=== PATIENT | female | born 1945 ===

== ENCOUNTER 2016-12-02 05:54 | Emergency (ER) | payer MEDICARE, MEDICAID ==
[2016-12-02 06:17] VITALS: RESP 16
--- NOTE | 2016-12-02 06:31 | C.PDOC ---
History Of Present Illness Patient is a 71 year old female who presents to the ER with a complaint of cramping pain from her left foot radiating to her left lower leg. Patients states while she was walking to the bathroom it radiated to her left abdomen and left back. Denies falling, urinary symptoms, vomiting, diarrhea or fever. Time Seen by Provider: 12/02/16 06:07 Chief Complaint (Nursing): Lower Extremity Problem/Injury History Per: Patient History/Exam Limitations: no limitations Onset/Duration Of Symptoms: Hrs Current Symptoms Are (Timing): Still Present Past Medical History Reviewed: Historical Data, Nursing Documentation, Vital Signs Vital Signs: Last Vital Signs Temp 97.6 F 12/02/16 06:06 Pulse 75 12/02/16 06:06 Resp 16 12/02/16 06:06 BP 116/76 12/02/16 06:06 Pulse Ox 99 12/02/16 06:36 - Medical History PMH: Anxiety, Arthritis, Asthma, HTN, Osteoporosis Surgical History: Cholecystectomy Family History: States: Unknown Family Hx - Social History Hx Alcohol Use: No Hx Substance Use: No - Immunization History Hx Influenza Vaccination: No Hx Pneumococcal Vaccination: No Review Of Systems Except As Marked, All Systems Reviewed And Found Negative. Constitutional: Negative for: Fever, Chills Gastrointestinal: Negative for: Vomiting Genitourinary: Negative for: Dysuria, Hematuria Musculoskeletal: Positive for: Back Pain, Leg Pain, Foot Pain, Other (Abdominal pain) Physical Exam - Physical Exam Appears: Non-toxic Skin: Normal Color, Warm, Dry Head: Atraumatic, Normacephalic Oral Mucosa: Moist Chest: Symmetrical Cardiovascular: Rhythm Regular Respiratory: Normal Breath Sounds, No Rales, No Rhonchi, No Wheezing Gastrointestinal/Abdominal: Soft, Tenderness (Left lower quadrant ) Back: CVA Tenderness (Left) Extremity: Normal ROM, No Calf Tenderness Pulses: Left Femoral: Normal, Right Femoral: Normal, Left Dorsalis Pedis: Normal , Right Dorsalis Pedis: Normal Neurological/Psych: Oriented x3, Normal Speech, Normal Cognition ED Course And Treatment - Laboratory Results Result Diagrams: 12/02/16 06:54 O2 Sat by Pulse Oximetry: 99 (Room air) Pulse Ox Interpretation: Normal Progress Note: Blood work and urinalysis ordered. Toradol IVP administered. Disposition - Disposition Disposition Time: 07:06 Condition: STABLE - Clinical Impression Clinical Impression: Abdominal pain, Pain of lower extremity - Scribe Statement The provider has reviewed the documentation as recorded by the Scribe Ac Brown All medical record entries made by the Scribe were at my direction and personally dictated by me. I have reviewed the chart and agree that the record accurately reflects my personal performance of the history, physical exam, medical decision making, and the department course for this patient. I have also personally directed, reviewed, and agree with the discharge instructions and disposition.
[2016-12-02 06:57] LABS: BASO # 0.1 K/uL (0.0-0.2); BASO % 0.8 % (0.0-2.0); EOS # 0.1 K/uL (0.0-0.7); EOS % 0.8 % (0.0-4.0); HEMATOCRIT 45.8 % (34.0-47.0); LYMPH # 1.8 K/uL (1.0-4.3); LYMPH % 17.6 % (20.0-40.0); MEAN CELL VOLUME 84.8 fL (81.0-99.0); MEAN CORPUSCULAR HEMOGLOBIN 27.6 pg (27.0-31.0); MEAN CORPUSCULAR HGB CONC 32.5 g/dL (33.0-37.0); MEAN PLATELET VOLUME 9.1 fL (7.2-11.7); MONO # 0.8 K/uL (0.0-0.8); MONO % 7.5 % (0.0-10.0); NRBC % 0.2 % (0.0-2.0); RED CELL DISTRIBUTION WIDTH 14.1 % (11.5-14.5); WHITE BLOOD COUNT 10.3 K/uL (4.8-10.8)
[2016-12-02 07:26] LABS: CHLORIDE 88 mmol/L (98-107)
[2016-12-02 07:27] LABS: POTASSIUM 4.6 mmol/L (3.6-5.2); SODIUM 140 mmol/L (132-148)
[2016-12-02 07:29] LABS: ALB/GLOB RATIO 1.5 (1.0-2.1); ALKALINE PHOSPHATASE 81 U/L (38-126); AST/SGOT 16 U/L (14-36); BILIRUBIN,TOTAL 0.4 mg/dL (0.2-1.3); CARBON DIOXIDE 36 mmol/L (22-30); GFR AFRICAN-AMERICAN > 60; TOTAL PROTEIN 7.9 g/dL (6.3-8.3)
[2016-12-02 07:30] LABS: ALT/SGPT 17 U/L (9-52); BLOOD UREA NITROGEN 14 mg/dL (7-17); CALCIUM 9.5 mg/dl (8.6-10.4); GLUCOSE,RANDOM 139 mg/dL (65-105)
[2016-12-02 07:55] LABS: RBC URINE < 1 /hpf (0-3); URINE BILIRUBIN NEGATIVE (NEGATIVE); URINE BLOOD NEGATIVE (NEGATIVE); URINE COLOR Straw (YELLOW); URINE GLUCOSE (UA) NORMAL (Normal); URINE KETONE NEGATIVE (NEGATIVE); URINE LEUKOCYTE ESTERASE NEG Leu/uL (Negative); URINE PROTEIN NEGATIVE (NEGATIVE); URINE UROBILINOGEN NORMAL mg/dL (0.2-1.0); WBC URINE < 1 /hpf (0-5)
[2016-12-02 08:08] LABS: URINE BACTERIA OCC (<OCC)
--- NOTE | 2016-12-02 08:26 | CT ---
PROCEDURE: CT Abdomen and Pelvis without intravenous contrast HISTORY: Pain COMPARISON: None. TECHNIQUE: Helical CT scan of the abdomen and pelvis was performed without administration of oral or intravenous contrast. Coronal and sagittal reformatted images were obtained. Radiation dose: Total exam DLP = 813.04 mGy-cm. This CT exam was performed using one or more of the following dose reduction techniques: Automated exposure control, adjustment of the mA and/or kV according to patient size, and/or use of iterative reconstruction technique. FINDINGS: LOWER THORAX: The right lung base is clear. There is a 7 mm subpleural nodule in the left lower lobe (series 2 image 10). The left lung base is clear. LIVER: The liver is normal in size. No gross lesion or ductal dilatation. GALLBLADDER AND BILE DUCTS: Surgically absent. PANCREAS: The pancreas is normal in size. No ductal dilatation or calcifications. SPLEEN: The spleen is normal in size. ADRENALS: Both adrenal glands are normal in size without discrete nodule KIDNEYS AND URETERS: Both kidneys are normal in size. There is no hydronephrosis or nephrolithiasis. VASCULATURE: Normal in appearance. No aortic aneurysm. BOWEL: The small bowel loops are normal in caliber. There is left colonic diverticulosis and apparent mild mural thickening of the descending and sigmoid colon. No evidence of fluid collection or microperforation. APPENDIX: Normal appendix. PERITONEUM: No free fluid. No free air. LYMPH NODES: No enlarged lymph nodes. BLADDER: Partially decompressed. REPRODUCTIVE: Unremarkable. BONES: No acute fracture. Mild multilevel degenerative disc disease. No destructive bony lesions. OTHER FINDINGS: None. IMPRESSION: Left colonic diverticulosis. Apparent mild mural thickening of the descending and sigmoid colon is nonspecific and could be related to underdistention however early acute diverticulitis cannot be excluded. Clinical follow-up is advised. No evidence of microperforation or abscess. No evidence of nephrolithiasis, obstructive uropathy or acute appendicitis.
[2016-12-02] MEDS ORDERED: Amoxicillin-Clav 875-125 mg Tab PO STA (08:34)
[2016-12-02] MEDS ORDERED: Amoxicillin-Clav 875-125 mg Tab PO ONE (09:04)
[2016-12-02 10:18] VITALS: BP 113/73; PULSE 73; TEMP 97.7; O2SAT 100
--- NOTE | 2016-12-02 14:38 | CARD ---
APPROVED REPORT EKG Measurement Heart [id number] <Conclusion> Poor data quality, interpretation may be adversely affected Normal sinus rhythm Minimal voltage criteria for LVH, may be normal variant Borderline ECG
== END 2016-12-02 10:39 | disposition home or self-care (01) ==
LOC: C.ER 05:54
DX: R10.32 Left lower quadrant pain (principal); M79.662 Pain in left lower leg
CPT/HCPCS: 74176; 80053; 81001; 83690; 85025; 93005; 96374; 96375; 99285; J1885; J2060

== ENCOUNTER 2017-06-15 11:45 | Emergency (ER) | payer OTHER ==
[2017-06-15] MEDS ORDERED: DiphenhydrAMINE 50 mg/ml Inj ONE (11:54)
[2017-06-15 11:57] VITALS: TEMP 98.6
[2017-06-15] MEDS ORDERED: Sodium Chloride 0.9% 1,000 ML IV ONE (11:59)
[2017-06-15] MEDS ORDERED: DiphenhydrAMINE 50 mg/ml Inj IVP STA (11:59)
[2017-06-15] MEDS ORDERED: Sodium Chloride 0.9% 1,000 ML ONE (12:03)
--- NOTE | 2017-06-15 12:29 | C.PDOC ---
History Of Present Illness Patient is a 71 year old female presents to Emergency Department for evaluation of allergic reaction that developed yesterday. Patient states that she developed itchy rash to the face, lower abdomen, and inguinal region. Notes being seen by PMD who gave her prescriptions of unknown medicine, which she states she was not able to fill. Notes taking Benadryl, and using calamine lotion without relief. Denies trouble swallowing, throat swelling, shortness of breath, chest pain, dizziness, or fever. Time Seen by Provider: 06/15/17 12:11 Chief Complaint (Nursing): Allergic Reaction History Per: Patient History/Exam Limitations: no limitations Onset/Duration Of Symptoms: Days (1) Current Symptoms Are (Timing): Still Present Associated Symptoms: Skin Rash, Itching. denies: Swelling, Dyspnea, Trouble Swallowing, Dizziness, Redness, Chest Pain Home/EMS Treatment: Benadryl Recent travel outside of the [place]: No Additional History Per: Patient Past Medical History Reviewed: Historical Data, Nursing Documentation, Vital Signs Vital Signs: Last Vital Signs Temp 98.6 F 06/15/17 13:28 Pulse 71 06/15/17 13:28 Resp 16 06/15/17 13:28 BP 121/77 06/15/17 13:28 Pulse Ox 98 06/15/17 13:28 - Medical History PMH: Anxiety, Arthritis, Asthma, HTN, Osteoporosis Surgical History: Cholecystectomy Family History: States: Unknown Family Hx - Social History Hx Alcohol Use: Yes Hx Substance Use: No - Immunization History Hx Influenza Vaccination: No Hx Pneumococcal Vaccination: No Review Of Systems Except As Marked, All Systems Reviewed And Found Negative. Constitutional: Negative for: Fever, Chills ENT: Negative for: Mouth Pain, Throat Pain, Throat Swelling Cardiovascular: Negative for: Chest Pain Respiratory: Negative for: Shortness of Breath Gastrointestinal: Negative for: Nausea, Vomiting, Abdominal Pain, Diarrhea Skin: Positive for: Rash Neurological: Negative for: Headache, Dizziness Physical Exam - Physical Exam Appears: Non-toxic, No Acute Distress Skin: Warm, Dry, Rash (macular erythematous rash to inguinal folds and suprapubic region with shiny exterior and patchy margins; bright erythema surrounding nasolabial folds, no weeping, no vesicles) Head: Atraumatic, Normacephalic Eye(s): bilateral: Normal Inspection Oral Mucosa: Moist Tongue: Normal Appearing, No Swelling Lips: Normal Appearing, No Swelling Throat: Normal, No Drooling Neck: Normal ROM, Supple Chest: Symmetrical Cardiovascular: Rhythm Regular, No Murmur Respiratory: Normal Breath Sounds, No Rales, No Rhonchi, No Wheezing Gastrointestinal/Abdominal: Soft, No Tenderness Extremity: Normal ROM Neurological/Psych: Oriented x3, Normal Speech ED Course And Treatment O2 Sat by Pulse Oximetry: 99 (RA) Pulse Ox Interpretation: Normal Medical Decision Making Medical Decision Making: Plan: * Miconazole * Solu-Medrol * Pepcid * Benadryl * IV fluids * Reassess and dispo Rash to abdomen appears mohinder, miconazole was applied. Rash to face appears allergy or unspecific dermatitis. Advise patient to take benadryl and will prescribe ointment Disposition Counseled Patient/Family Regarding: Diagnosis, Need For Followup, Rx Given - Disposition Referrals: Isaiah Davila MD [Staff Provider] - Disposition: HOME/ ROUTINE Disposition Time: 12:58 Condition: STABLE Additional Instructions: [place] por dejarnos atenderlo hoy. [place] proveedor fue PA Will. Usted fue tratado por erupcin y picazn. [place] benadryl segn sea necesario para la picaz n y aplique crema a las reas afectadas. Por favor carol un seguimiento con dixon m dico primario para [place] evaluacin adicional. [place] por permitir que el equipo de [facility] sea parte de dixon cuidado hoy. Prescriptions: Miconazole 2% [Miconazole 2% Cream] 1 cre TOP BID #1 tube Instructions: Skin Yeast Infection (ED) Forms: [employer] (Thai) Print Language: DJIBOUTIAN - POA Present On Arrival: None - Clinical Impression Clinical Impression: Candidal skin infection, Allergic dermatitis - PA / PUPPY TRAINER / Resident Statement MD/DO has reviewed & agrees with the documentation as recorded. - Scribe Statement The provider has reviewed the documentation as recorded by the Luisibstanton Crabtree All medical record entries made by the Scribe were at my direction and personally dictated by me. I have reviewed the chart and agree that the record accurately reflects my personal performance of the history, physical exam, medical decision making, and the department course for this patient. I have also personally directed, reviewed, and agree with the discharge instructions and disposition.
[2017-06-15] MEDS ORDERED: Miconazole 2% Cream(30 gm) TOP STA (12:39)
[2017-06-15 13:29] VITALS: BP 121/77; PULSE 71; RESP 16
[2017-06-15 16:50] VITALS: O2SAT 99
== END 2017-06-15 13:50 | disposition home or self-care (01) ==
LOC: C.ER 11:45
DX: B37.2 Candidiasis of skin and nail (principal); L23.9 Allergic contact dermatitis, unspecified cause
CPT/HCPCS: 96361; 96374; 96375; 99284; J1200; J2930; J7040

== ENCOUNTER 2018-12-04 13:29 | Emergency (ER) | payer OTHER ==
[2018-12-04 13:33] VITALS: BP 177/92; PULSE 92; TEMP 99.4; O2SAT 97
[2018-12-04] MEDS ORDERED: Dexamethasone 4 mg/1 ml IM STA (14:10)
[2018-12-04 14:22] VITALS: RESP 18
--- NOTE | 2018-12-04 19:10 | C.PDOC ---
History Of Present Illness 73 y/o female presents to ED complaining of persistent rash to chest and abdomen for the past month. Patient has been seen in the ER and by her PMD a couple times for re-evaluations, but the rash persists. Patient seem to get better with PO benadryl and hydrocortisone cream. She has not been seen by a colorist dyer yet. She denies any new exposures. Denies fever or recent travel. Time Seen by Provider: 12/04/18 13:45 Chief Complaint (Nursing): Abnormal Skin Integrity History Per: Patient History/Exam Limitations: no limitations Onset/Duration Of Symptoms: Days Current Symptoms Are (Timing): Still Present Past Medical History Reviewed: Historical Data, Nursing Documentation, Vital Signs Vital Signs: Last Vital Signs Temp 99.4 F 12/04/18 13:30 Pulse 92 H 12/04/18 13:30 Resp 18 12/04/18 14:21 BP 177/92 H 12/04/18 13:30 Pulse Ox 97 12/04/18 13:30 - Medical History PMH: Anxiety, Arthritis, Asthma, HTN, Osteoporosis Surgical History: Cholecystectomy Family History: States: No Known Family Hx - Social History Hx Alcohol Use: Yes Hx Substance Use: No - Immunization History Hx Influenza Vaccination: No Hx Pneumococcal Vaccination: No Review Of Systems Except As Marked, All Systems Reviewed And Found Negative. Constitutional: Negative for: Fever Skin: Positive for: Rash (chest and abdomen) Physical Exam - Physical Exam Appears: Non-toxic, No Acute Distress Skin: Other (erythematous macular rash to chest, breast, and abdomen) Head: Atraumatic Eye(s): bilateral: Normal Inspection Oral Mucosa: Moist Throat: Normal Neck: Supple Cardiovascular: Rhythm Regular, No Murmur Respiratory: Normal Breath Sounds, No Rales, No Rhonchi, No Stridor, No Wheezing Gastrointestinal/Abdominal: Soft, No Tenderness Extremity: Bilateral: Atraumatic, Normal ROM Neurological/Psych: Oriented x3, Normal Speech ED Course And Treatment O2 Sat by Pulse Oximetry: 97 (RA) Pulse Ox Interpretation: Normal Medical Decision Making Medical Decision Making: Plan: --Decadron 10 mg IM Patient advised to follow up with colorist dyer this week. Disposition - Disposition [facility] - Disposition: HOME/ ROUTINE Disposition Time: 14:10 Condition: GOOD Additional Instructions: PERCY COLUNGA, thank you for letting us take care of you today. The emergency medical care you received today was directed at your acute symptoms. If you were prescribed any medication, please fill it and take as directed. It may take several days for your symptoms to resolve. Return to the Emergency Department if your symptoms worsen, do not improve, or if you have any other problems. Please contact your doctor or call one of the physicians/clinics you have been referred to that are listed on the Patient Visit Information form that is included in your discharge packet. Bring any paperwork you were given at discharge with you along with any medications you are taking to your follow up visit. Our treatment cannot replace ongoing medical care by a primary care provider outside of the emergency department. Thank you for allowing the [facility] team to be part of your care today. Start the prednisone prescription tomorrow morning. Follow up with your primary care doctor in 2-3 days. You can also follow up with one of the dermatologists on the list that was provided to you. Prescriptions: DiphenhydrAMINE [Benadryl] 50 mg PO Q6 PRN #20 cap PRN Reason: Itching / Pruritus predniSONE [Prednisone] 40 mg PO DAILY #10 tab Instructions: Dermatitis Forms: [employer] (Indonesian) - Clinical Impression Clinical Impression: Dermatitis - Scribe Statement The provider has reviewed the documentation as recorded by the Melissa Nam Provider Attestation: All medical record entries made by the Melissa were at my direction and personally dictated by me. I have reviewed the chart and agree that the record accurately reflects my personal performance of the history, physical exam, medical decision making, and the department course for this patient. I have also personally directed, reviewed, and agree with the discharge instructions and disposition.
== END 2018-12-04 14:25 | disposition home or self-care (01) ==
LOC: C.ER 13:29
DX: L30.9 Dermatitis, unspecified (principal)
CPT/HCPCS: 96372; 99283; J1100